=== PATIENT | female | born 1970 | race Caucasian/White ===

== ENCOUNTER 2019-10-02 15:07 | Emergency (ER) | payer MEDICARE, MEDICAID ==
[~2019-10-02] VITALS: Ht 180.3 cm; Wt 89.7 kg
[2019-10-02 15:14] VITALS: BP 154/89
[2019-10-02] MEDS ORDERED: KETOROLAC 30 MG/1 ML IM ONE (15:30)
[2019-10-02] MEDS ORDERED: OXYcodone/APAP 5/325MG TABLET PO ONE (15:30)
[2019-10-02] MEDS ORDERED: OXYcodone/APAP 5/325MG TABLET ONE (15:32)
[2019-10-02] MEDS ORDERED: KETOROLAC 30 MG/1 ML ONE (15:32)
--- NOTE | 2019-10-02 16:03 | NUR ---
SHOULDER IMMOBILIZER APPLIED. +CMS. PT REPORTS SOME IMPROVEMENT IN PAIN WITH MEDICATIONS. DC EDUCATION PROVIDED, PT DEMONSTRATES UNDERSTANDING. PT AMBULATED STEADILY TO DC WITH RN. SO TO TRANSPORT PT HOME.
== END 2019-10-02 16:05 | disposition home or self-care (01) ==
LOC: ED 15:45
DX: S43.401A Unspecified sprain of right shoulder joint, initial encounter (principal); M75.31 Calcific tendinitis of right shoulder; G89.29 Other chronic pain; X58.XXXA Exposure to other specified factors, initial encounter; Y93.89 Activity, other specified; Y92.89 Other specified places as the place of occurrence of the external cause; Y99.8 Other external cause status
CPT/HCPCS: 73030; 96372; 99283; J1885; 29105

== ENCOUNTER 2020-01-03 12:04 | Emergency (ER) | payer MEDICARE, MEDICAID ==
[~2020-01-03] VITALS: Ht 180.3 cm; Wt 88.6 kg
[2020-01-03 12:15] VITALS: BP 141/94
--- NOTE | 2020-01-03 12:40 | NUR ---
[id number]
--- NOTE | 2020-01-03 12:49 | NUR ---
NA X2
[2020-01-03] MEDS ORDERED: DIAZEPAM 5 MG TABLET ONE (13:05)
[2020-01-03] MEDS ORDERED: KETOROLAC 30 MG/1 ML ONE (13:05)
[2020-01-03] MEDS ORDERED: KETOROLAC 30 MG/1 ML IM ONE (13:30)
[2020-01-03] MEDS ORDERED: DIAZEPAM 5 MG TABLET PO ONE (13:30)
== END 2020-01-03 13:35 | disposition home or self-care (01) ==
LOC: ED 13:09
DX: S29.012A Strain of muscle and tendon of back wall of thorax, initial encounter (principal); M54.5 Low back pain; E11.9 Type 2 diabetes mellitus without complications; F17.210 Nicotine dependence, cigarettes, uncomplicated; W10.0XXA Fall (on)(from) escalator, initial encounter; Y93.89 Activity, other specified; Y92.009 Unspecified place in unspecified non-institutional (private) residence as the place of occurrence of the external cause; Y99.8 Other external cause status
CPT/HCPCS: 72080; 72110; 96372; 99284; J1885

== ENCOUNTER 2020-03-07 19:11 | Emergency (ER) | payer MEDICARE, MEDICAID ==
[~2020-03-07] VITALS: Ht 180.3 cm; Wt 86.7 kg
[2020-03-07] MEDS ORDERED: TOPI100T24 PO (19:26)
--- NOTE | 2020-03-07 19:26 | NUR ---
pt ambulated back to room with a smooth and steady gait, NAD, RESP WNL, pt changed into gown, collected urine when went to restroom, ambulated to and from with a steady gait, at . P/W/D. call light on lap, [facility].
[2020-03-07] MEDS ORDERED: METHOCARBAMOL 750 MG TABLET PO ONE (19:30)
[2020-03-07] MEDS ORDERED: METHOCARBAMOL 750 MG TABLET ONE (19:31)
--- NOTE | 2020-03-07 19:51 | NUR ---
pt resting in gurney, NAD, RESP WNL, P/W/D, MAEx4, FCS no SOB noted, at bedside, waiting for UA results. WCTM. Pt was medicated per MAR for discomfort in back, pt states that she "has some relief but its not all the way gone" from pain.
[2020-03-07 19:53] LABS: HCG UR SG 1.032 (1.003-1.030)
[2020-03-07 19:58] LABS: MICROSCOPIC INDICATED
[2020-03-07 20:30] VITALS: BP 127/75
--- NOTE | 2020-03-07 20:30 | NUR ---
pt resting in gurney, states pain is back to a "9/10", RESP WNL, NAD, P/W/D, MAEx4, FCS no SOB, given towel to rest head on, WCTM. waiting for urine then recheck.
[2020-03-07] MEDS ORDERED: HYDROcodone/APAP 5/325 TABLET ONE (20:38)
--- NOTE | 2020-03-07 20:39 | NUR ---
pt medicated per MAR for pain, NAD, RESP WNL, at BS, WCTM. waiting for recheck.
[2020-03-07] MEDS ORDERED: HYDROcodone/APAP 5/325 TABLET PO ONE (21:00)
== END 2020-03-07 21:08 | disposition home or self-care (01) ==
LOC: ED 20:30
DX: N30.00 Acute cystitis without hematuria (principal); M54.6 Pain in thoracic spine; R25.2 Cramp and spasm
CPT/HCPCS: 81001; 81025; 87077; 87086; 87186; 99283

== ENCOUNTER 2020-05-25 11:58 | Emergency (ER) | payer MEDICARE, MEDICAID ==
[~2020-05-25] VITALS: Ht 180.3 cm; Wt 87.1 kg
[~2020-05-25 11:58] MED LIST: TOPI100T24 PO
[2020-05-25 12:01] VITALS: BP 134/78
[2020-05-25] MEDS ORDERED: KETOROLAC 30 MG/1 ML IM ONE (12:30)
[2020-05-25] MEDS ORDERED: KETOROLAC 30 MG/1 ML ONE (12:53)
== END 2020-05-25 13:28 | disposition home or self-care (01) ==
LOC: ED 12:29
DX: M79.644 Pain in right finger(s) (principal); E11.9 Type 2 diabetes mellitus without complications; G89.29 Other chronic pain; F17.200 Nicotine dependence, unspecified, uncomplicated
CPT/HCPCS: 73130; 96372; 99283; J1885; 82962

== ENCOUNTER 2020-11-05 08:59 | Emergency (ER) | payer MEDICARE, MEDICAID ==
[~2020-11-05] VITALS: Ht 180.3 cm; Wt 91.1 kg
--- NOTE | 2020-11-05 09:35 | NUR ---
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
[2020-11-05] MEDS ORDERED: KETOROLAC 60 MG/2 ML ONE ×2 (09:56→10:38)
[2020-11-05] MEDS ORDERED: CYCLOBENZAPRINE 10 MG TABLET ONE (09:57)
[2020-11-05] MEDS ORDERED: HYDROcodone/APAP 5/325 TABLET ONE (09:57)
[2020-11-05] MEDS ORDERED: KETOROLAC 30 MG/1 ML IM ONE (10:00)
[2020-11-05] MEDS ORDERED: HYDROcodone/APAP 5/325 TABLET PO ONE (10:00)
[2020-11-05] MEDS ORDERED: CYCLOBENZAPRINE 10 MG TABLET PO ONE (10:00)
--- NOTE | 2020-11-05 10:01 | NUR ---
SITTING ON SIDE OF GURNEY. C/O MID-BACK PAIN; "STARTED LAST NIGHT, BUT IT''S BEEN GOING ON FOR AWHILE" "FOR A COUPLE OF MONTHS". INITIATLLY STARTED AFTER LIFTING SOME HONEY (A GALLON JUG). CURRENT SX STARTED WHILE PT WAS SITTING. IBUPROFEN LAST NOC, ASPIRIN 325MG AT 0100. TRIED ICE AND HEAT W/OUT RELIEF. DENIES NUMBNESS/TINGLING IN LE'S, DIFFICULTY WALKING. NO FOOT DROP NOTED.
[2020-11-05] MEDS ORDERED: INSU200I4 SQ (10:07)
[2020-11-05] MEDS ORDERED: PHEN-583 PO (10:07)
[2020-11-05] MEDS ORDERED: METF500T17 PO (10:07)
[2020-11-05] MEDS ORDERED: NITR100C6 PO (10:07)
--- NOTE | 2020-11-05 10:12 | NUR ---
PT MEDICATED PER EMAR
--- NOTE | 2020-11-05 10:12 | NUR ---
[facility] in [facility] - 11/05/20 at 1019 by IRIS PT MEDICATED CHAD KINGSLEY
[2020-11-05 10:14] VITALS: BP 115/82
--- NOTE | 2020-11-05 10:19 | NUR ---
PT TO BE DC'D; AWAITING DC DOCUMENTS
--- NOTE | 2020-11-05 10:45 | NUR ---
DC INSTRUCTIONS DISCUSSED W/ PT; UNDERSTANDING VERBALIZED. PT REPORTS DECREASE IN PAIN
== END 2020-11-05 10:54 | disposition home or self-care (01) ==
LOC: ED 10:39
DX: M54.6 Pain in thoracic spine (principal); M54.5 Low back pain; E11.9 Type 2 diabetes mellitus without complications; G89.29 Other chronic pain
CPT/HCPCS: 96372; 99283; J1885